=== PATIENT | female | born 1985 | race Caucasian/White ===

== ENCOUNTER 2016-10-03 22:58 | Inpatient (IN) ==
[2016-10-03 23:31] LABS: Apearance,Urine CLEAR (Clear); Bacteria,Urine Occasional /HPF (Few); Bilirubin,Urine Negative (Negative); Blood, Urine Negative (Negative); Glucose,Urine (UA) Negative (Negative); Ketones,Urine 5 mg/dL (Negative); Mucus,Urine Occasional /LPF (Occasional); Nitrite,Urine Negative (Negative); Protein,Urine Negative; RBC,Urine <1 /HPF (0-4); Squamous Epithelial Cell,Urine Occasional /HPF (0-10); Urine Color Straw (Yellow); Urine Specific Gravity 1.004 (1.001-1.035); Urine Urobilinogen < 2.0 EU/DL (0.2-1.0); WBC,Urine 1 /HPF (0-6)
[2016-10-03] MEDS: LACTATED RINGERS 1,000 ML IV SCH (23:35)
[2016-10-04] MEDS ORDERED: LACTATED RINGERS 500 ML IV PRN (00:51)
[2016-10-04] MEDS ORDERED: ONDANSETRON 4 MG/2 ML VIAL IV PRN ×2 (00:51→07:09)
[2016-10-04] MEDS ORDERED: OXYTOCIN/LR 20 UNIT/1,000 ML BAG IV SCH (01:00)
[2016-10-04 01:23] LABS: Basophils % 0.2 % (0.0-0.8); Eosinophils % 0.2 % (0.00-10.9); Hematocrit 35.2 VOL% (35.7-47.0); Hemoglobin 11.5 GM/DL (12.0-16.0); Immature Granulocytes % 1.7 %; Immature Granulocytes Absolute 0.22 #; Lymphocytes # 2.1 10*3/uL (1.4-4.0); Lymphocytes % 16.2 % (21.3-54.2); Mean Corpuscular HGB Conc 32.7 GM/DL (32-36); Mean Corpuscular Hemoglobin 29 PG (27-34); Mean Corpuscular Volume 89.8 FL (87-102); Mean Platelet Volume 10.5 FL (9.6-12.0); Monocytes # 1.1 10*3/uL (0.11-0.8); Monocytes % 8.9 % (1.7-12.7); Neutrophils # 9.3 10*3/uL (1.4-7.4); Neutrophils % 72.8 % (38.7-73.9); Platelet Count 298 10*3/uL (130-400); Red Blood Count 3.92 10*6/uL (3.8-5.5); Red Cell Distribution Width 14.4 % (9.3-17.3); White Blood Count 12.8 10*3/uL (4.5-13.71)
[2016-10-04] MEDS: MEPERIDINE 50 MG/1 ML VIAL IV PRN ×3 (01:34→06:16)
[2016-10-04 01:44] LABS: Alanine Aminotransferase 20 U/L (13-56); Albumin 2.9 G/DL (3.4-5.0); Alkaline Phosphatase 129 U/L (45-117); Aspartate Amino Transferase 18 U/L (0-37); Bilirubin,Total < 0.39 MG/DL (0.2-1.0); Blood Urea Nitrogen 7 MG/DL (7-18); Calcium 8.7 MG/DL (8.5-10.1); Glucose 79 MG/DL (74-106); Potassium 3.9 MMOL/L (3.5-5.1); Sodium 143 MMOL/L (136-145); Total Protein 6.5 G/DL (6.4-8.3)
[2016-10-04] MEDS: LACTATED RINGERS 1,000 ML IV SCH ×2 (03:20→13:14)
[2016-10-04] MEDS ORDERED: miSOPROStol 200 MCG TABLET ONE (03:57)
[2016-10-04] MEDS ORDERED: LIDOCAINE 1% 50 ML VIAL ONE (03:57)
[2016-10-04] MEDS ORDERED: METHYLERGONOVINE 0.2 MG/1 ML AMP ONE (03:58)
[2016-10-04 06:56] LABS: Cord Arterial Blood HCO3 19.9 MMOL/L
[2016-10-04 06:59] LABS: Cord Venous Blood HCO3 20.6 MMOL/L; Cord Venous Blood PCO2 46.2 MMHG; Cord Venous Blood PO2 28.8
--- NOTE | 2016-10-04 07:02 | OB/GYN History & Physical ---
History of Present Illness Chief complaint: active labor 39+ weeks History of present illness: Ms. Babcock is a 31 year old female 31-year-old 1 para 0 EDC is 10/05/2016 who presents in active labor. Patient presented approximate 4+ centimeters dilated. heart tones are category 1, bag of water was intact. Patient did not desire an epidural anesthetic we'll recommend the IV sedation. Home Medications Medication Instructions Recorded Confirmed Type Folic Acid 0.8 mg PO DAILY 10/03/16 10/03/16 History Multivitamin () [ 1 tablet PO DAILY 10/03/16 10/03/16 History Vitamin] Ondansetron Tab [Zofran Tab] 4 mg PO Q6H PRN 10/03/16 10/03/16 History Allergies Allergy/AdvReac Type Severity Reaction Status Date / Time latex Allergy RASH Verified 10/04/16 02:19 codeine AdvReac Nausea Verified 10/03/16 23:08 Medical,Surgical,& Family Hx - Family History Family History: Reports;: Family Heart Disease (MGF), Family Hypertension ( MOTHER) Denies;: Family Anesthesia Reaction, Family Cancer, Family Psychiatric Problems, Family Stroke - Social History Smoking Status: Never smoker Frequency of Alcohol Use: None Type of Drug Use: None Exam FINANCIAL INTERN - Constitutional Vitals: Vital Signs Temp Pulse Resp BP Pulse Ox 10/04/16 04:00 97.0 F L 65 18 126/78 10/03/16 23:08 98.8 F 69 18 153/91 100 General appearance: no acute distress - Antepartum / Post Antpartum Exam Cervix -Dilatation: 4 cm dilated, 80% -2 station vertex - Head Head exam: Present: normal inspection - Eye Eye exam: Present: EOMI Pupils: Present: EYAL - ENT ENT exam: Present: normal exam - Neck Neck exam: Present: normal inspection - Respiratory Respiratory exam: Present: clear to auscultation bilaterally - Breast Breasts: as per HPI Menstruation: as per HPI - Cardiovascular Cardiovascular exam: Present: regular rate and rhythm - GI/Abdominal GI/Abdominal exam: Present: normal bowel sounds - Extremities Exam Extremities exam: Present: normal inspection - Back Exam Back exam: Present: normal inspection - Neurological Exam Neurological exam: Present: alert, oriented X3 - Psychiatric Psychiatric exam: Present: normal affect - Skin Skin exam: Present: normal color Assessment and Plan (1) Active labor at term Status: Acute Assessment and plan: Anticipate vaginal ,risk and benefits were thoroughly discussed this patient's agreement with our plan for delivery. Current Visit: Yes Results - Labs CBC & BMP: 10/04/16 01:07 10/04/16 01:07
--- NOTE | 2016-10-04 07:08 | Event Note ---
Stage I of labor Patient admitted at approximately 12 midnight 4 cm dilated heart tones category 1 Robin every 2-4 minutes apart moderate intensity IV Pitocin IV Demerol Spontaneous rupture membranes at 9 cm clear fluid Stage II LML episiotomy Vacuum extraction at a +2 station, appropriate pressure 2 applications, no pop offs Local anesthetic OA position female at 639 a.m. weight is pending Cord blood, cord gas obtained Stage III Repair of episiotomy with 2-0 Vicryl, 3-0 chromic Estimated blood loss less than 200 mL
[2016-10-04] MEDS ORDERED: BENZOCAINE 20%/MENTHOL 0.5% SPRAY 56 GM CAN TOP PRN (07:09)
[2016-10-04] MEDS ORDERED: OXYTOCIN/LR 20 UNIT/1,000 ML BAG IV ONE (07:09)
[2016-10-04] MEDS ORDERED: oxyCODONE/ACETAMINOPHEN 5-325 MG TABLET PO PRN (07:09)
[2016-10-04] MEDS ORDERED: LANOLIN 50% CREAM 0.3 OZ TUBE TOP PRN (07:09)
[2016-10-04] MEDS ORDERED: HYDROCORTISONE 2.5% RECTAL CREAM 30 GM TUBE TOP PRN (07:09)
[2016-10-04] MEDS ORDERED: MEASLES/MUMPS/RUBELLA VACCINE 0.5 ML VIAL SUBCUT ONE (07:09)
[2016-10-04] MEDS ORDERED: ACETAMINOPHEN 325 MG TABLET PO PRN (07:09)
[2016-10-04] MEDS ORDERED: WITCH HAZEL PADS 100/JAR TOP PRN (07:09)
[2016-10-04] MEDS ORDERED: DIPH/TET/ACEL PERT BOOSTER VACCINE 0.5 ML VIAL IM ONE (07:09)
[2016-10-04] MEDS ORDERED: RHO(D) IMMUNE GLOBULIN 300 MCG SYRINGE IM ONE (07:09)
[2016-10-04] MEDS ORDERED: BISACODYL 10 MG SUPP RECTAL PRN (07:09)
[2016-10-04] MEDS: IBUPROFEN 800 MG TABLET PO PRN ×3 (08:37→22:34)
[2016-10-04] MEDS: DOCUSATE SODIUM 100 MG CAPSULE PO SCH ×2 (13:04→22:00)
[2016-10-04] MEDS: oxyCODONE/ACETAMINOPHEN 5-325 MG TABLET PO PRN (16:52)
[2016-10-05] MEDS: oxyCODONE/ACETAMINOPHEN 5-325 MG TABLET PO PRN ×4 (04:45→23:00)
[2016-10-05 04:50] LABS: Basophils % 0.2 % (0.0-0.8); Eosinophils # 0.1 10*3/uL (0.0-0.87); Eosinophils % 0.5 % (0.00-10.9); Hematocrit 29.5 VOL% (35.7-47.0); Hemoglobin 9.6 GM/DL (12.0-16.0); Immature Granulocytes % 1.4 %; Immature Granulocytes Absolute 0.19 #; Lymphocytes # 2.6 10*3/uL (1.4-4.0); Mean Corpuscular HGB Conc 32.5 GM/DL (32-36); Mean Corpuscular Hemoglobin 30 PG (27-34); Mean Corpuscular Volume 90.8 FL (87-102); Mean Platelet Volume 10.2 FL (9.6-12.0); Monocytes # 1.2 10*3/uL (0.11-0.8); Monocytes % 9.3 % (1.7-12.7); Neutrophils % 68.6 % (38.7-73.9); Platelet Count 241 10*3/uL (130-400); Red Blood Count 3.25 10*6/uL (3.8-5.5); Red Cell Distribution Width 14.6 % (9.3-17.3); White Blood Count 13.2 10*3/uL (4.5-13.71)
[2016-10-05] MEDS: DOCUSATE SODIUM 100 MG CAPSULE PO SCH ×2 (09:01→20:42)
[2016-10-05] MEDS: IBUPROFEN 800 MG TABLET PO PRN ×2 (09:05→19:43)
--- NOTE | 2016-10-05 09:17 | OB/GYN Progress Note ---
Assessment and Plan (1) Vaginal delivery Status: Acute Assessment and plan: Initiate routine orders. Current Visit: Yes (2) Active labor at term Status: Acute Current Visit: Yes ADMISSIONS EVALUATOR - PN: Subj Interval history: Stable with no complaints. Bonding well with baby. Exam ADMISSIONS EVALUATOR - Constitutional Vitals: Vital Signs Temp Pulse Resp BP Pulse Ox 10/05/16 07:12 96.8 F L 69 16 100/56 96 10/05/16 04:00 98 F 64 18 120/60 95 10/05/16 02:00 18 10/04/16 23:52 96.8 F L 68 18 102/58 95 10/04/16 20:00 97.7 F 78 18 122/72 97 10/04/16 15:55 98.1 F 65 18 121/72 96 10/04/16 12:00 99.9 F H 77 18 103/54 97 10/04/16 10:58 97.8 F 106 H 20 119/67 98 General appearance: no acute distress - Antepartum / Post Post Exam Breast: bilateral: normal Abdomen obstetrics: Present: bowel sounds normal Vagina: Present: normal moisture, discharge (light lochia rubra) Uterus exam: Present: enlarged (FF ML) Anus/Rectum: Present: normal perianal skin - Head Head exam: Present: normal inspection - Respiratory Respiratory exam: Present: clear to auscultation bilaterally - Cardiovascular Cardiovascular exam: Present: regular rate and rhythm - GI/Abdominal GI/Abdominal exam: Present: normal bowel sounds, soft - Extremities Exam Extremities exam: Present: normal inspection - Back Exam Back exam: Present: normal inspection - Neurological Exam Neurological exam: Present: alert, oriented X3 - Psychiatric Psychiatric exam: Present: normal affect, normal mood - Skin Skin exam: Present: normal color, warm Results - Labs CBC & BMP: 10/05/16 04:37 10/04/16 01:07
--- NOTE | 2016-10-05 09:22 | Physician Query Form ---
CLICK EDIT DOCUMENT TO SELECT QUERY ANSWER --> OK --> SIGN Jonelle Sanchez RN, CCDS Certified Clinical Maintenance Pipefitter Director of Clinical Documentation W) [phone] (f) [phone] [email or web address] PROVIDERS: Make your selection(s) from the choices in EACH section by typing an "x" and enter comments in the comment section. Please use your independent medical judgment in providing your response. This request does not imply that any particular answer is desired or expected. CLINICAL INDICATORS: (Providers should not edit this section) Patient admitted in active labor, "Vacuum extraction at a +2 station, appropriate pressure 2 applications, no pop offs". Can you please further clarify the reason for vacuum extraction? Based on the above, could you clarify the appropriate diagnosis, if significant , that supports the above abnormalities and additional evaluation, monitoring, and/or treatment rendered: ( ) Maternal Exhaustion ( ) Distress ( ) Failed or Attempted Delivery ( ) Labor complication ( ) Other, please specify: ( ) Clinically unable to determine COMMENTS: Use of terms such as suspected, likely, or probable (associated with a specific diagnosis that is being evaluated, monitored, or treated as if it exists) are acceptable and can be restated in the discharge summary if not ruled out. [facility]
[2016-10-05] MEDS: FERROUS SULFATE 325 MG TABLET PO SCH ×2 (09:45→20:42)
[2016-10-06] MEDS: IBUPROFEN 800 MG TABLET PO PRN ×2 (03:36→11:55)
[2016-10-06 07:23] VITALS: BP 111/70
[2016-10-06] MEDS: oxyCODONE/ACETAMINOPHEN 5-325 MG TABLET PO PRN (07:31)
[2016-10-06] MEDS: FERROUS SULFATE 325 MG TABLET PO SCH (09:34)
[2016-10-06] MEDS: DOCUSATE SODIUM 100 MG CAPSULE PO SCH (09:34)
--- NOTE | 2016-10-06 09:57 | Discharge Summary ---
Hospital Course - Hospital Course Hospital Course: Mrs. Babcock presented to the labor department in active labor. She subsequently delivered a viable female with no complications. She has followed a normal 2 day course that she has done well. Her bleeding is minimal with no odor. Her perineum is intact with no edema. Her vital signs and lab values are stable. She is bonding well with her infant. Her bowel sounds are positive and she has had a normal bowel movement. Her fundus is firm and midline. She will be discharged home prescriptions for pain and follow-up appointment in our office. Diagnosis - Discharge Diagnosis (1) Vaginal delivery Status: Acute (2) Active labor at term Status: Acute Specialty Discharge - Follow Up or Referrals Follow up with: Brayan Rogers MD [Physician] - (follow up in 6 weeks) Discharge Plan - Discharge Data Disposition: Disch To Home/Self Care Condition at Discharge: Stable Discharge Diet: advance to your usual diet, regular diet Activity: resume usual activities as tolerated Weight Bearing at Discharge: weight bear as tolerated Driving: no restrictions Contact your physician if you experience:: fever over 101, pain uncontrolled by pain medications - Discharge Medications New Ferrous Sulfate Tab [Feosol Original Tab] 325 mg PO BID #60 tablet Ibuprofen Tab [Motrin Tab] 800 mg PO Q6H PRN #30 tablet PRN Reason: Pain Moderate (4-7) No Action Multivitamin () [ Vitamin] 1 tablet PO DAILY Ondansetron Tab [Zofran Tab] 4 mg PO Q6H PRN PRN Reason: Nausea Folic Acid 0.8 mg PO DAILY - Follow Up or Referral - Forms/Instructions Exam - Constitutional Vitals: Period Temp Pulse Resp BP Sys/Gillespie Pulse Ox Last 24 Hr 96.1 F-97.9 F 67-98 18-18 107-126/68-83 96-99 General appearance: no acute distress - Neck Neck exam: Present: normal inspection - Respiratory Respiratory exam: Present: clear to auscultation bilaterally - Cardiovascular Cardiovascular exam: Present: regular rate and rhythm - GI/Abdominal GI/Abdominal exam: Present: normal bowel sounds, soft - Extremities Exam Extremities exam: Present: normal inspection - Back Exam Back exam: Present: normal inspection - Neurological Exam Neurological exam: Present: alert, oriented X3 - Psychiatric Psychiatric exam: Present: normal affect, normal mood - Skin Skin exam: Present: normal color, warm Discharge Results Procedures and tests throughout hospitalization: Pending Orders 10/04/16 00:51 Urinalysis Routine DS: Provider Date of admission: 10/03/16 22:58 Primary care physician: . No PCP Attending physician on admission: Brayan Rogers MD Consults: 10/04/16 00:51 Consult to Anesthesiology [CONS] Routine Consulting Provider: Reason for Anesthesiology: Epidural Consult Comment: Epidural for pain managment 10/04/16 07:09 Consult to Public Area Supervisor [CONS] Routine Consult Public Area Supervisor: Breast Feeding Discharging clinician: Ada Delacruz CNM Expected date of discharge: 10/06/16
--- NOTE | 2016-10-06 10:24 | Physician Query Form ---
CLICK EDIT DOCUMENT TO SELECT QUERY ANSWER --> OK --> SIGN Jonelle Sanchez RN, CCDS Certified Clinical Mechanical Manufacturing Engineer Director of Clinical Documentation W) [phone] (f) [phone] [email or web address] PROVIDERS: Make your selection(s) from the choices in EACH section by typing an "x" and enter comments in the comment section. Please use your independent medical judgment in providing your response. This request does not imply that any particular answer is desired or expected. CLINICAL INDICATORS: (Providers should not edit this section) Patient admitted in active labor, "Vacuum extraction at a +2 station, appropriate pressure 2 applications, no pop offs". Can you please further clarify the reason for vacuum extraction? Based on the above, could you clarify the appropriate diagnosis, if significant , that supports the above abnormalities and additional evaluation, monitoring, and/or treatment rendered: ( ) Maternal Exhaustion ( ) Distress ( ) Failed or Attempted Delivery ( ) Labor complication ( ) Other, please specify: ( ) Clinically unable to determine COMMENTS: Use of terms such as suspected, likely, or probable (associated with a specific diagnosis that is being evaluated, monitored, or treated as if it exists) are acceptable and can be restated in the discharge summary if not ruled out. [facility]
--- NOTE | 2016-10-08 12:54 | Physician Query Form ---
CLICK EDIT DOCUMENT TO SELECT QUERY ANSWER --> OK --> SIGN Jonelle Sanchez RN, CCDS Certified Clinical Director Of Direct Marketing Director of Clinical Documentation W) [phone] (f) [phone] [email or web address] PROVIDERS: Make your selection(s) from the choices in EACH section by typing an "x" and enter comments in the comment section. Please use your independent medical judgment in providing your response. This request does not imply that any particular answer is desired or expected. CLINICAL INDICATORS: (Providers should not edit this section) Patient admitted in active labor, "Vacuum extraction at a +2 station, appropriate pressure 2 applications, no pop offs". Can you please further clarify the reason for vacuum extraction? Based on the above, could you clarify the appropriate diagnosis, if significant , that supports the above abnormalities and additional evaluation, monitoring, and/or treatment rendered: ( ) Maternal Exhaustion ( ) Distress ( ) Failed or Attempted Delivery ( ) Labor complication ( ) Other, please specify: ( ) Clinically unable to determine COMMENTS: Use of terms such as suspected, likely, or probable (associated with a specific diagnosis that is being evaluated, monitored, or treated as if it exists) are acceptable and can be restated in the discharge summary if not ruled out. [facility]
--- NOTE | 2016-10-08 12:55 | Physician Query Form ---
CLICK EDIT DOCUMENT TO SELECT QUERY ANSWER --> OK --> SIGN Jonelle Sanchez RN, CCDS Certified Clinical Senior Business Broker Director of Clinical Documentation W) [phone] (f) [phone] [email or web address] PROVIDERS: Make your selection(s) from the choices in EACH section by typing an "x" and enter comments in the comment section. Please use your independent medical judgment in providing your response. This request does not imply that any particular answer is desired or expected. CLINICAL INDICATORS: (Providers should not edit this section) Patient admitted in active labor, "Vacuum extraction at a +2 station, appropriate pressure 2 applications, no pop offs". Can you please further clarify the reason for vacuum extraction? Based on the above, could you clarify the appropriate diagnosis, if significant , that supports the above abnormalities and additional evaluation, monitoring, and/or treatment rendered: ( ) Maternal Exhaustion ( ) Distress ( ) Failed or Attempted Delivery ( ) Labor complication ( ) Other, please specify: ( ) Clinically unable to determine COMMENTS: Use of terms such as suspected, likely, or probable (associated with a specific diagnosis that is being evaluated, monitored, or treated as if it exists) are acceptable and can be restated in the discharge summary if not ruled out. [facility]
== END 2016-10-06 13:00 | disposition home or self-care (01) | DRG 775 ==
LOC: N.LD 22:58 → N.OB 10-04 15:54
PROVIDERS: ADMIT Obstetrics & Gynecology; ATTEND Obstetrics & Gynecology

== ENCOUNTER 2019-01-20 01:47 | Inpatient (IN) ==
[2019-01-20] MEDS ORDERED: ONDANSETRON 4 MG/2 ML VIAL IV PRN (01:55)
[2019-01-20] MEDS ORDERED: BUTORPHANOL 2 MG/ML VIAL IV PRN (01:55)
[2019-01-20] MEDS ORDERED: MEPERIDINE 50 MG/1 ML VIAL IM PRN (01:55)
[2019-01-20] MEDS ORDERED: LACTATED RINGERS 1,000 ML IV SCH (02:00)
[2019-01-20 02:17] LABS: Basophils % 0.3 % (0.0-0.8); Eosinophils % 0.4 % (0.00-10.9); Hematocrit 33.5 VOL% (35.7-47.0); Hemoglobin 10.5 GM/DL (12.0-16.0); Immature Granulocytes % 1.6 %; Immature Granulocytes Absolute 0.16 #; Lymphocytes # 2.6 10*3/uL (1.4-4.0); Lymphocytes % 25.3 % (21.3-54.2); Mean Corpuscular HGB Conc 31.3 GM/DL (32-36); Mean Corpuscular Volume 88.4 FL (87-102); Mean Platelet Volume 10.6 FL (9.6-12.0); Monocytes % 10.4 % (1.7-12.7); Platelet Count 291 T/CUMM (130-400); Red Blood Count 3.79 MC/CUMM (3.8-5.5); Red Cell Distribution Width 13.8 % (9.3-17.3); White Blood Count 10.1 T/CUMM (4-12)
[2019-01-20] MEDS ORDERED: AMPICILLIN INJ 2,000 MG in SODIUM CHLORIDE 0.9% 100 ML IV SCH (02:30)
[2019-01-20 02:37] LABS: Alanine Aminotransferase 15 U/L (13-56); Albumin 2.7 G/DL (3.4-5.0); Alkaline Phosphatase 121 U/L (45-117); Aspartate Amino Transferase 18 U/L (0-37); Bilirubin,Total < 0.39 MG/DL (0.2-1.0); Blood Urea Nitrogen 12 MG/DL (7-18); Calcium 8.5 MG/DL (8.5-10.1); Glucose 87 MG/DL (74-106); Osmolality,Calculated 273.7 MOS/KG (273-304); Total Protein 6.9 G/DL (6.4-8.3)
[2019-01-20] MEDS ORDERED: MEPERIDINE 50 MG/1 ML VIAL IV PRN (03:19)
[2019-01-20] MEDS ORDERED: OXYTOCIN/LR 20 UNIT/1,000 ML BAG IV SCH (05:00)
[2019-01-20] MEDS ORDERED: miSOPROStol 200 MCG TABLET ONE (08:41)
[2019-01-20] MEDS ORDERED: OXYTOCIN/LR 20 UNIT/1,000 ML BAG IV ONE (08:41)
[2019-01-20] MEDS ORDERED: TRANEXAMIC ACID 1,000 MG/10 ML VIAL ONE (08:41)
[2019-01-20] MEDS ORDERED: LIDOCAINE 1% 50 ML VIAL ONE (08:42)
[2019-01-20] MEDS ORDERED: CARBOPROST TROMETHAMINE 250 MCG/ML AMP IM ONE (08:42)
[2019-01-20] MEDS ORDERED: METHYLERGONOVINE 0.2 MG/1 ML AMP ONE (08:42)
[2019-01-20 09:37] LABS: Cord Venous Blood HCO3 21.4 MMOL/L; Cord Venous Blood PCO2 44.5 MMHG; Cord Venous Blood PO2 31.6
[2019-01-20] MEDS ORDERED: IBUPROFEN 800 MG TABLET PO PRN (12:03)
[2019-01-20] MEDS ORDERED: RHO(D) IMMUNE GLOBULIN 300 MCG SYRINGE IM ONE (12:59)
[2019-01-20] MEDS ORDERED: BENZOCAINE 20%/MENTHOL 0.5% SPRAY 56 GM CAN TOP PRN (12:59)
[2019-01-20] MEDS ORDERED: WITCH HAZEL PADS 100/JAR TOP PRN (12:59)
[2019-01-20] MEDS ORDERED: MEASLES/MUMPS/RUBELLA VACCINE 0.5 ML VIAL SUBCUT ONE (12:59)
[2019-01-20] MEDS ORDERED: DIPH/TET/ACEL PERT BOOSTER VACCINE 0.5 ML VIAL IM ONE (12:59)
[2019-01-20] MEDS ORDERED: HYDROCORTISONE 2.5% RECTAL CREAM 30 GM TUBE TOP PRN (12:59)
[2019-01-20] MEDS ORDERED: BISACODYL 10 MG SUPP RECTAL PRN (12:59)
[2019-01-20] MEDS ORDERED: LANOLIN 50% CREAM 0.3 OZ TUBE TOP PRN (12:59)
[2019-01-20] MEDS ORDERED: KETOROLAC 30 MG/1 ML VIAL IV SCH (14:00)
[2019-01-20] MEDS: ACETAMINOPHEN 500 MG TABLET PO SCH ×2 (14:27→19:53)
[2019-01-20] MEDS: IBUPROFEN 800 MG TABLET PO SCH (17:49)
[2019-01-21] MEDS: DOCUSATE SODIUM 100 MG CAPSULE PO SCH ×2 (00:23→08:00)
[2019-01-21] MEDS: ACETAMINOPHEN 500 MG TABLET PO SCH ×2 (02:02→07:37)
[2019-01-21] MEDS: IBUPROFEN 800 MG TABLET PO SCH ×2 (02:02→10:05)
[2019-01-21 05:53] LABS: Basophils % 0.2 % (0.0-0.8); Eosinophils # 0.1 10*3/uL (0.0-0.87); Eosinophils % 0.6 % (0.00-10.9); Hematocrit 30.6 VOL% (35.7-47.0); Hemoglobin 9.5 GM/DL (12.0-16.0); Immature Granulocytes Absolute 0.12 #; Lymphocytes # 2.8 10*3/uL (1.4-4.0); Lymphocytes % 23.2 % (21.3-54.2); Mean Corpuscular Volume 89.7 FL (87-102); Mean Platelet Volume 10.4 FL (9.6-12.0); Monocytes % 8.2 % (1.7-12.7); Neutrophils % 66.8 % (38.7-73.9); Platelet Count 250 T/CUMM (130-400); Red Blood Count 3.41 MC/CUMM (3.8-5.5); Red Cell Distribution Width 14.1 % (9.3-17.3); White Blood Count 12.1 T/CUMM (4-12)
[2019-01-21 07:37] VITALS: BP 92/57
[2019-01-21] MEDS ORDERED: IBUPROFEN 800 MG TABLET PO SCH (11:00)
== END 2019-01-21 12:25 | disposition home or self-care (01) | DRG 768 ==
LOC: N.LDOUT 01:47 → N.LD 01:51 → N.OB 12:59
PROVIDERS: ADMIT Obstetrics & Gynecology; ATTEND Obstetrics & Gynecology